=== PATIENT | female | born 1955 | race Caucasian/White ===

== ENCOUNTER 2024-08-13 05:50 | Day surgery (SDC) | payer MEDICARE, BC ==
[2024-08-13] MEDS: Dextrose 5%-0.45% NaCl 1,000 ML IV SCH (06:15)
[2024-08-13] MEDS ORDERED: Midazolam 1 MG/ML 2 ML SDV IV ONE (06:18)
[2024-08-13] MEDS ORDERED: fentaNYL 100 MCG/2 ML SDV IV ONE (06:18)
[2024-08-13] MEDS ORDERED: fentaNYL 100 MCG/2 ML SDV ONE (06:18)
[2024-08-13] MEDS ORDERED: Midazolam 1 MG/ML 2 ML SDV ONE (06:18)
[2024-08-13] MEDS: fentaNYL 100 MCG/2 ML SDV IV ONE ×2 (07:00→07:01)
[2024-08-13] MEDS: Midazolam 1 MG/ML 2 ML SDV IV ONE ×6 (07:02→07:29)
== END 2024-08-13 09:14 | disposition home or self-care (01) ==
LOC: DL.ENDO 05:50
PROVIDERS: ATTEND Internal Medicine Gastroenterology
DX: Z12.11 Encounter for screening for malignant neoplasm of colon (principal); R19.5 Other fecal abnormalities; K57.30 Diverticulosis of large intestine without perforation or abscess without bleeding; E78.5 Hyperlipidemia, unspecified
CPT/HCPCS: J2250; J3010